=== PATIENT | male | born 1990 | race Two or more races ===

== ENCOUNTER 2024-10-20 14:01 | Emergency (ER) | payer OTHER ==
[~2024-10-20] VITALS: Ht 185.4 cm; Wt 68.0 kg
[2024-10-20] MEDS ORDERED: FORFIVO XL450 MG (14:26)
[2024-10-20] MEDS ORDERED: SEROQUEL XR150 MG PO (14:26)
[2024-10-20] MEDS ORDERED: PROZAC40 MG PO (14:27)
[2024-10-20] MEDS ORDERED: DIPHTH,PERTUSS(ACELL),TET VAC 0.5 ML VIAL IM ONE (15:00)
[2024-10-20] MEDS ORDERED: CEFTRIAXONE SODIUM 1,000 MG VIAL IM ONE (15:00)
== END 2024-10-20 15:41 | disposition home or self-care (01) ==
LOC: ER 14:01
DX: S00.81XA Abrasion of other part of head, initial encounter (principal); X83.8XXA Intentional self-harm by other specified means, initial encounter; Y93.89 Activity, other specified; Y92.89 Other specified places as the place of occurrence of the external cause; Y99.8 Other external cause status
CPT/HCPCS: 90471; 90714; J1670